=== PATIENT | female | born 2005 | race Caucasian/White ===

== ENCOUNTER 2023-10-22 10:59 | Observation (INO) | payer OTHER, SELFPAY ==
[2023-10-22 11:06] VITALS: BP 112/72; PULSE 127; TEMP 36.7; O2SAT 96
--- NOTE | 2023-10-22 11:07 | CT_ITS ---
WS: [id number] CT HEAD NONCONTRAST HISTORY: ams TECHNIQUE: Contiguous axial imaging performed through the brain in 3.0 mm imaging. Bone and soft tiss ue windows. Sagittal and coronal reformats reviewed. All CT scans at [facility] use at least one of these dose optimization techniques: automated exposure control; mA and/or kV adjustment per pa tient size (includes targeted exams where dose is matched to clinical indication); or iterative recon struction. DLP: 1049.58 mGy.cm COMPARISON: None available. No acute intracranial hemorrhage, midline shift or mass effect. No atrophy or prior infarcts or herniation. Ventricles: Normal size with no hydrocephalus. No intra displacement the cerebellar tonsils. No Chiari malformation. Paranasal sinuses: As visualized are clear. Mastoid air cells: Well pneumatized. Calvarium and scalp: Skull is intact with no soft tissue edema or swelling. CT/CT head wo con* [id number] IMPRESSION: Negative head CT.
--- NOTE | 2023-10-22 11:08 | ECG_ITS ---
[facility] Test Date: 2023-10-22 Pat Name: Luna Serrano Department: Room: Gender: Female Senior Statistical Programmer: : 2005 Requested By: Kaila Gomez Order Number: [id number] Cliff MD: Power Hook M.D. Measurements Intervals [place] Rate: 113 P: 78 MI: 162 QRS: 96 QRSD: 92 T: 61 QT: 332 QTc: 456 Interpretive Statements SINUS TACHYCARDIA POSSIBLE LEFT ATRIAL ENLARGEMENT [-0.1mV P-WAVE IN V1/V2] BORDERLINE RIGHT AXIS DEVIATION [QRS AXIS > 90] INCOMPLETE RIGHT BUNDLE BRANCH BLOCK [90+ ms QRS DURATION, TERMINAL R IN V1/V2, 40+ ms S IN I/aVL/V4/V5/V6] ABNORMAL RHYTHM ECG No previous ECG available for comparison Electronically Signed On 10-22-2023 14:57:13 CDT by Power Hook M.D. [id number]
--- NOTE | 2023-10-22 11:11 | ED_ITS ---
HPI - General Adult 2 General: Chief complaint: Altered Mental Status Stated complaint: Syncope Time Seen by Provider: 10/22/23 11:01 Source: EMS Mode of arrival: EMS Limitations: altered mental status History of Present Illness: 18-year-old female who was at work and h ad a syncopal event that was witnessed patient here is minimally responsive only able to tell me her name but is not moving any extremities or answering any questions I tell her to move her arms and legs and she will not lift them. Per EMS she was tachycardic they gave her some fluids she had a normal blood sugar heart rate is now 117 patient denies any pain but again is minimally responsive here Physical Exam 2 Const: COMMON NORMALS: alert EXAM LIMITATIONS: altered mental status O RIENTATION/CONSCIOUSNESS: Yes oriented to person HENMT: COMMON NORMALS: normocephalic and atraumatic HEAD & SCALP: n ormocephalic and atraumatic Eye: COMMON NORMALS: Equal, round and reactive pupils present and EOMs intact bilaterally PUPIL: Yes Equal, round and reactive pupils present Neck/C-Spine: COMMON NORMALS: full ROM and supple Chest: COMMONS NORMALS: normal inspection of the chest Resp: COMMON NORMALS: normal respiratory effort, No retractions, No use of accessory muscles and clear to auscultation bilaterally AUSCULTATION: clear to auscultation bilaterally Cardio: COMMON NORMALS: regular rhythm and No murmurs present (Cardio) R ATE: tachycardic RHYTHM: regular rhythm GI: COMMON NORMALS: Normal to inspection, nondistended, normoactive bowel sounds present, Soft to palpation, non-tender and no masses PALPATION: Yes Soft to palpation Extremity: COMMON NORMALS: normal to inspection and full ROM Neuro: SENSORIUM/ORIENTATION: Yes alert and Yes oriented to person OTHER: Patient here will only tell me her name she will not move any of her extremities tried to lift them and she will hold them Psych: COMMON NORMALS: cooperative Skin: COMMON NORMALS: no rashes or lesions noted and no wounds GENERAL SKIN EXAM: no rashes or lesions noted Course 2 Reevaluation(s): Reevaluation #1: Patient presents with altered mental status no known history of seizures she had no focal deficits here but she will not move any extremities or hands for any questions patient been here for 2 hours now she continues to be in a catatonic state her imaging including a CTA head is normal. She is not patient is not anemic her electrolytes are normal has a mildly elevated lactate at 3.3 no known history of seizures could be a possible seizure spoken to neurology Dr. Miller at this point and is consulted and is going to come see the patient this time. Time: 12:43 Vital Signs: Vital signs: Vital Signs Temperature 98.2 F 10/22/23 13:07 Pulse Rate 111 H 10/22/23 14:20 Respiratory Rate 16 10/22/23 13:07 Blood Pressure 102/69 10/22/23 14:20 Pulse Oximetry 100 10/22/23 13:07 Oxygen Delivery Me thod Room Air 10/22/23 13:07 MDM - General Adult Medical Decision Making Patient presented after syncopal event she was altered here after roughly 2 and half hours started become more awake she did complain of headache and had a history of migraines did give her Toradol and Zofran her headaches now resolved she is feeling improved she is able to ambulate now did get orthostatics and with standing she still getting tachycardic into the 140s likely has some dehydration I spoke to hospitalist will admit for observation at this time. Medical Records I reviewed the patient's medical records. Lab Data I reviewed the patient's lab results. 10/22/23 10:45 10/22/23 10:[address] 10/22/23 11:07 IMPRESSION: Negative head CT. Chest X-Ray 10/22/23 11:25 IMPRESSION: Unremarkable portable chest. Head/Neck CTA 10/22/23 11:56 IMPRESSION: 1. Normal carotid arteries. 2. Unremarkable [place]. Laboratory Results WBC 10.60 10^3/uL (4.5-13.0) 10/22/23 10:45 RBC 4.59 10^6/uL (3.85-5.65) 10/22/23 10:45 Hgb 13.50 g/dL (12.4-14.8) 10/22/23 10:45 Hct 41.4 % (36-47) 10/22/23 10:45 MCV 90.2 fl (85-98) 10/22/23 10:45 MCH 29.4 pg (27-33) 10/22/23 10:45 MCHC 32.6 g/dL (30-55) 10/22/23 10:45 RDW 12.5 % (12.1-15.1) 10/22/23 10:45 Plt Count 384 10^3/cmm (157-399) 10/22/23 10:45 MPV 9.3 fL (7.4-10.4) 10/22/23 10:45 Neut % (Auto) 27.7 % 10/22/23 10:45 Lymph % (Auto) 58.9 % 10/22/23 10:45 Josephine % (Auto) 8.9 % 10/22/23 10:45 Eos % (Auto) 3.0 % 10/22/23 10:45 Baso % (Auto) 1.3 % 10/22/23 10:45 Neut # (Auto) 2.94 10^3/uL (1.8-8.0) 10/22/23 10:45 Lymph # (Auto) 6.2 10^3/uL (1.5-6.5) 10/22/23 10:45 Josephine # (Auto) 0.9 10^3/uL (0.2-0.9) 10/22/23 10:45 Eos # (Auto) 0.3 10^3/uL (0.0-0.8) 10/22/23 10:45 Baso # (Auto) 0.1 10^3/uL (0.0-0.1) 10/22/23 10:45 Nucleated RBC % (auto) 0 % 10/22/23 10:45 Nucleated RBCs # 0.0 /100WBC 10/22/23 10:45 D-Dimer 0.42 ug/mLFEU (0-0.59) 10/22/23 11:20 Specimen Type Arterial 10/22/23 13:23 Sample Site Brachial, right 10/22/23 13:23 ABG pH 7.41 (7.35-7.45) 10/22/23 13:23 ABG pCO2 31.4 mmHg (35-45) L 10/22/23 13:23 ABG pO2 120.0 mmHg (80.0-100.0) H 10/22/23 13:23 ABG PO2/FiO2 Ratio 571 10/22/23 13:23 ABG HCO3 19.8 mmol/L (22-26) L 10/22/23 13:23 ABG Base Excess -4.0 mmol/L (-2.0-2.0) L 10/22/23 13:23 [place] Test Pos 10/22/23 13:23 Hematocrit 38.4 % (37-47) 10/22/23 13:23 O2 Delivery Device Room air 10/22/23 13:23 FiO2 21.0 % 10/22/23 13:23 Mold Yarn Supervisor ID [place] 10/22/23 13:23 Sodium 140 mmol/L (136-145) 10/22/23 10:45 Potassium 3.8 mmol/L (3.5-5.1) 10/22/23 10:45 Chloride 107 mmol/L (98-107) 10/22/23 10:45 Carbon Dioxide 20 mmol/L (22-29) L 10/22/23 10:45 Anion Gap 16.8 (5-19) 10/22/23 10:45 BUN 12 mg/dL (6-20) 10/22/23 10:45 Creatinine 0.5 mg/dL (0.5-0.9) 10/22/23 10:45 GFR Calculation 157.3 mL/min (90-130) H 10/22/23 10:45 Glucose 175 mg/dL (65-115) H 10/22/23 10:45 Calculated Osmolality 294 mOsm/kg (285-295) 10/22/23 10:45 Lactic Acid 3.3 mmol/L (0.5-2.2) H 10/22/23 10:45 Lactic Acid (Sepsis) 1.3 mmol/L (0.5-2.2) 10/22/23 14:11 Calcium 8.7 mg/dL (8.5-10.5) 10/22/23 10:45 Magnesium 1.8 mg/dL (1.7-2.3) 10/22/23 10:45 Total Bilirubin 0.7 mg/dL (0.15-1.2) 10/22/23 10:45 AST 43 U/L (0-32) H 10/22/23 10:45 ALT 72 U/L (0-33) H 10/22/23 10:45 Alkaline Phosphatase 56 U/L (35-105) 10/22/23 10:45 Troponin T Baseline < 6 ng/L (0-10) 10/22/23 10:45 Troponin T 120 Minute 6.00 ng/L (0-10) 10/22/23 12:54 Delta Troponin T 0.35045 ABS# (0-10) 10/22/23 12:54 Total Protein 6.7 g/dL (6.6-8.7) 10/22/23 10:45 Albumin 4.0 g/dL (3.5-5.2) 10/22/23 10:45 Globulin 2.7 g/dL (1.3-4.6) 10/22/23 10:45 Lipase 36 U/L (13-60) 10/22/23 10:45 TSH 1.21 uIU/mL (0.27-4.20) 10/22/23 10:45 HCG, Qual Negative (Negative) 10/22/23 10:45 Urine Color Yellow (Yellow) 10/22/23 12:38 Urine Appearance Clear (CLEAR) 10/22/23 12:38 Urine pH 6.5 (5-7) 10/22/23 12:38 Ur Specific [place] 1.020 (1.005-1.030) 10/22/23 12:38 Urine Protein Negative (Negative) 10/22/23 12:38 Urine Glucose (UA) Negative (Normal) 10/22/23 12:38 Urine Ketones Trace (Negative) 10/22/23 12:38 Urine Blood Negative (Negative) 10/22/23 12:38 Urine Nitrate Negative (Negative) 10/22/23 12:38 Urine Bilirubin Negative (Negative) 10/22/23 12:38 Urine Urobilinogen 0.2 mg/dL (Negative) 10/22/23 12:38 Ur Leukocyte Esterase Negative (Negative) 10/22/23 12:38 Amorphous Sediment Not Reportable 10/22/23 12:38 Salicylates < 0.3 mg/dL (3-10) L 10/22/23 10:45 Urine Opiates Screen Negative ng/mL (Negative) 10/22/23 12:38 Acetaminophen < 5.0 ug/mL (10-30) L 10/22/23 10:45 Ur Barbiturates Screen Negative ng/mL (Negative) 10/22/23 12:38 Ur Phencyclidine Scrn Negative ng/mL (Negative) 10/22/23 12:38 Ur Amphetamines Screen Negative ng/mL (Negative) 10/22/23 12:38 U Benzodiazepines Scrn Negative ng/mL (Negative) 10/22/23 12:38 Urine Cocaine Screen Negative ng/mL (Negative) 10/22/23 12:38 U Marijuana (THC) Screen Positive ng/mL (Negative) H 10/22/23 12:38 Ethyl Alcohol 23 mg/dL (0-10) H 10/22/23 10:45 All radiology interpretation(s) finalized by discharge EKG Data EKG 1: I personally reviewed and interpreted this EKG as follows: EKG interpretation date: 10/22/23 EKG interpretation time: 11:23 Interpretation: sinus tach hr [address] or t wave abnormalities qrs 92 qtc 399 Computer generated interpretation: Head CT 10/22/23 11:07 IMPRESSION: Negative head CT. Chest X-Ray 10/22/23 11:25 IMPRESSION: Unremarkable portable chest. Head/Neck CTA 10/22/23 11:56 IMPRESSION: 1. Normal carotid arteries. 2. Unremarkable [place]. Discharge Plan Discharge Patient Disposition: Placed in Observation Clinical Impression: Syncope, Migraine, Dehydration, Altered mental status, Tachycardia Condition: Stable Prescriptions: No Action Ada 24 Fe 1 mg-20 mcg (24)/75 mg (4) tablet 1 tab PO DAILY Patient Instructions: Altered Mental Status (ED) Coding Level of Care Code ED Blow Torch Operator for Kj Rudolph
[2023-10-22] MEDS: sodium chloride 0.9% 1,000 ML 999 ML IV ×2 (11:21→12:59)
--- NOTE | 2023-10-22 11:25 | XR_ITS ---
WS: [id number] PORTABLE CHEST HISTORY: syncope COMPARISON: None available. Lungs are clear and well expanded. No pleural effusion or pneumothorax. Cardiac size: Normal. Mediastinum/Aorta: Normal mediastinum. No osseous abnormality seen. XR/XR chest 1V portable [id number] IMPRESSION: Unremarkable portable chest.
[2023-10-22 11:26] LABS: Basophils # 0.1 10^3/uL (0.0-0.1); Basophils % 1.3 %; Eosinophils # 0.3 10^3/uL (0.0-0.8); Hematocrit 41.4 % (36-47); Lymphocytes # 6.2 10^3/uL (1.5-6.5); Lymphocytes % 58.9 %; Mean Corpuscular HGB Conc 32.6 g/dL (30-55); Mean Corpuscular Hemoglobin 29.4 pg (27-33); Mean Corpuscular Volume 90.2 fl (85-98); Mean Platelet Volume 9.3 fL (7.4-10.4); Monocytes # 0.9 10^3/uL (0.2-0.9); Monocytes % 8.9 %; Neutrophils # 2.94 10^3/uL (1.8-8.0); Neutrophils % 27.7 %; Nucleated Red Blood Cells % 0 %; Platelet Count 384 10^3/cmm (157-399); Red Blood Count 4.59 10^6/uL (3.85-5.65); Red Cell Distribution Width 12.5 % (12.1-15.1)
[2023-10-22 11:43] LABS: HCG, Serum Qual Negative (Negative)
[2023-10-22 11:46] LABS: D Dimer 0.42 ug/mLFEU (0-0.59)
--- NOTE | 2023-10-22 11:46 | PC.PHAR ---
PT UNRESPONSIVE. PHONED PHARMACY FOR VERIFICATION OF 1 MEDICATION-LAST FILL DATE AND DAYS SUPPLY ENTERED.
[2023-10-22 11:47] LABS: Troponin(5th) Baseline < 6 ng/L (0-10)
[2023-10-22 11:48] LABS: Alanine Aminotransferase 72 U/L (0-33); Alcohol Level 23 mg/dL (0-10); Alkaline Phosphatase 56 U/L (35-105); Anion Gap 16.8 (5-19); Aspartate Amino Transferase 43 U/L (0-32); Blood Urea Nitrogen 12 mg/dL (6-20); Calcium 8.7 mg/dL (8.5-10.5); Carbon Dioxide 20 mmol/L (22-29); Chloride 107 mmol/L (98-107); Globulin 2.7 g/dL (1.3-4.6); Glomerular Filtration Rate 157.3 mL/min (90-130); Glucose 175 mg/dL (65-115); Lipase 36 U/L (13-60); Magnesium 1.8 mg/dL (1.7-2.3); Osmolality Calculated 294 mOsm/kg (285-295); Potassium 3.8 mmol/L (3.5-5.1); Sodium 140 mmol/L (136-145); Total Bilirubin 0.7 mg/dL (0.15-1.2); Total Protein 6.7 g/dL (6.6-8.7)
--- NOTE | 2023-10-22 11:56 | CT_ITS ---
WS: [id number] CT ANGIOGRAM CEREBRAL AND CAROTID ARTERIES HISTORY: ams TECHNIQUE: CT angiogram is performed of the carotid and cerebral arteries. During arterial injection imaging is obtained from the skull vertex to the aortic arch in 1.25 mm imaging. Coronal and sagittal reformats are submitted. Additional multi planar reformats of the carotid and cerebral arteries are submitted, MIP imaging also reviewed. NASCET criteria utilized. All CT scans at [facility] us e at least one of these dose optimization techniques: automated exposure control; mA and/or kV adjust ment per patient size (includes targeted exams where dose is matched to clinical indication); or iter ative reconstruction. CONTRAST: Omnipaque 350; 100 mL IV. DLP: 390.12 mGy.cm COMPARISON: None available. Carotid Angiogram: Right carotid: Common carotid artery: Arises normally from the innominate artery. No significant plaque or stenosis. Internal carotid artery: No plaque or stenosis. External carotid artery: Patent. Left carotid: Common carotid artery: Arises normally from the aorta. No significant plaque or stenosis. Internal carotid artery: No plaque or stenosis. External carotid artery: Patent. Right vertebral artery: Unremarkable. Left vertebral artery: Unremarkable. Arises normally from the subclavian artery. Subclavian arteries: No stenosis or significant abnormality. Upper thorax: Normal. Thyroid gland: Normal. Osseous structures: Unremarkable. CEREBRAL ANGIOGRAM: Intracranial vertebral arteries: Normal with no significant atherosclerosis. Basilar artery: No significant stenosis or occlusion. No aneurysm. Intracranial Internal carotid arteries: Demonstrates no significant stenosis or plaque. Middle cerebral arteries: Normal. Anterior cerebral arteries and ACOM: Normal. Posterior cerebral arteries and PCOM's: Normal. Dural venous sinuses are normally enhancing. Small arachnoid granulations are noted in the far latera l transverse sinuses. The RIGHT transverse sinus and sigmoid sinus are greater in size than the LEFT. Mastoid air cells: Normal. Paranasal sinuses: Normal. Calvarium: Normal. CT/CT angio headneck* [id number] IMPRESSION: 1. Normal carotid arteries. 2. Unremarkable [place].
[2023-10-22 11:58] LABS: Slide Review Slide Review Perform
[2023-10-22] MEDS: iohexol 350 mg/mL 500 mL Btl (per mL) IV (12:09)
[2023-10-22 12:10] LABS: Lactic Sepsis W/Reflex 3.3 mmol/L (0.5-2.2)
[2023-10-22 12:27] LABS: Thyroid Stimulating Hormone 1.21 uIU/mL (0.27-4.20)
[2023-10-22 12:48] LABS: Charge for UA Resulting for Rev
[2023-10-22 12:51] LABS: Bilirubin Urine Negative (Negative); Blood Urine Negative (Negative); Glucose Urine UA Negative (Normal); Ketones Urine Trace (Negative); Leukocyte Esterase Urine Negative (Negative); Nitrate Urine Negative (Negative); Protein Urine Negative (Negative); Urine Appearance Clear (CLEAR); Urine Color Yellow (Yellow); Urobilinogen Urine 0.2 mg/dL (Negative); pH Urine 6.5 (5-7)
[2023-10-22 12:58] LABS: Amphetamines Screen Urine Negative (Negative); Barbiturates Screen Urine Negative (Negative); Benzodiazepines Screen Urine Negative (Negative); Cocaine Screen Urine Negative (Negative); Opiate Screen Urine Negative (Negative); PCP Screen Urine Negative (Negative); THC Screen Urine Positive (Negative)
[2023-10-22 13:07] VITALS: BP 116/79; PULSE 145; RESP 16; TEMP 36.8; O2SAT 100
--- NOTE | 2023-10-22 13:08 | ECG_ITS ---
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 Measurements Intervals [place] Rate: 132 P: 78 IN: 151 QRS: 97 QRSD: 84 T: 44 QT: 286 QTc: 424 Interpretive Statements SINUS TACHYCARDIA BORDERLINE RIGHT AXIS DEVIATION [QRS AXIS > 90] Compared to ECG 10/22/2023 11:23:02 Incomplete right bundle-branch block no longer present Electronically Signed On 10-22-2023 14:57:45 CDT by Power Hook M.D. [id number]
[2023-10-22] MEDS: sodium chloride 0.9% 500 ML 999 ML IV (13:30)
[2023-10-22 13:31] LABS: Troponin 5 2HR Delta 0.00001 ABS# (0-10)
[2023-10-22] MEDS: ketorolac 30 mg/mL INJ IVP (13:31)
[2023-10-22] MEDS: ondansetron 2 mg/ML SDV 2 mL 4 MG IVP (13:31)
--- NOTE | 2023-10-22 13:33 | PM.CONSULT ---
Providers/Reason For Consult Consulting Physician/Specialty*: Perry Mccoy MD neurology and epilepsy Reason for Consult*: Decreased level consciousness/syncope History of Present Illness History of Present Illness Luna Serrano is a 18 year old female with no known past medical history. Patient is in [employer] school. 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 Patient was reported to go to the break room at the facility where she worked and was found down in the break room with nausea and vomiting. In the emergency department patient was started on IV fluids lab for CBC, comprehensive metabolic panel, TSH, magnesium and lactate were obtained. Lactate was elevated at 3.3. Other labs was reported to be unrevealing, including serum quantitative test. CT angiogram of the head and neck and noncontrast head CT reported to be negative. On neurological assessment the patient is currently alert she will nod her head yes and no to questions appropriately. Patient follows all commands. Examination nonfocal. During my assessment the patient stated she needed to use the bathroom and she was able to use a bedside alexander with the nurses anatomic pathology assistant without any issues. 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 He also informed me that the patient has complained of migraine type headaches associated with nausea and photophobia for at least a year. Clinically the patient's examination suggestive of dehydration. I recommended patient continue to get IV fluids and I spoke with the ER physician caring for the patient to try Toradol and IV Phenergan to see if this will help the patient's headache. Drug allergies: None Medications: Norethindrone estradiol/iron 1 p.o. daily Habits: Urine drug screen positive for marijuana and alcohol on the the patient's sister and boyfriend stated patient does not use drugs to their knowledge Last menstrual period: Unable to obtain but exam test/hCG negative Occupation: [employer] student first year Review of Systems General: Reports: ROS unobtainable due to medical condition Medications/Allergies Home Medications Medication Instructions Recorded Confirmed Last Taken Type norethindrone 1 mg-ethinyl 1 tab PO DAILY 10/22/23 10/22/23 Unknown History estradiol 20 mcg (24)-iron 75 mg (4) tablet ([place] 24 Fe) Current Medications Generic Name Dose Route Start Last Admin Trade Name Star PRN Reason Stop Dose Admin Sodium Chloride 500 mls @ 999 mls/hr 10/22/23 13:23 10/22/23 13:30 Sodium Chloride 0.9% IV 10/22/23 13:53 999 mls/hr .Q31M ONE Administration Vitals/I&O/Wt Last Vital Signs Temp 98.2 F 10/22/23 13:07 Pulse 145 H 10/22/23 13:07 Resp 16 10/22/23 13:07 BP 116/79 10/22/23 13:07 Pulse Ox 100 10/22/23 13:07 O2 Del Method Room Air 10/22/23 13:07 10/21/23 10/22/23 10/22/23 22:59 06:59 14:59 Intake Total 1000 / 1000 Balance 1000 / 1000 Physical Exam Narrative: Blood pressure 116/70 heart rate 145 respiration 16 temperature 98.2 O2 saturation 100% on room air The patient is alert she follows commands she is oriented to person she will speak sparsely. Her speech is soft. Head atraumatic. Neck supple. Cranial nerves II through XII intact. There is no obvious signs of facial weakness. Pupils 5 to 6 mm with the room darkening with the lights secondary to patient reporting headache and photophobia. Motor testing while the patient was lying on the gurney 5/5 bilaterally. There was no drift. Patient was able to hold arms and legs off the bed against gravity with no drift. Deep tendon reflexes 2+ bilaterally. Plantar responses flexor bilaterally there was no clonus. Sensory examination intact to touch. Throat clear. Lungs clear. Heart regular rhythm with increased rate. Extremities were negative for clubbing cyanosis or edema. Data 10/22/23 10:45 10/22/23 10:45 A&P Assessment and plan (1) Syncope: Impression: 1. Syncope at [employer] 08/24/2023 2. Dehydration 3. History of migraine headaches 4. Sinus tachycardia Plan: 1. Agree with IV fluids for hydration 2. Agree with trial of Phenergan and Toradol for headache as needed 3. Address tachycardia 4. Schedule patient for follow-up in the [facility] neurology clinic in 1 to 2 weeks after discharge 5. Recommend patient be evaluated by cardiology on an outpatient basis to assess for cardiac arrhythmias 6. Will schedule an outpatient sleep deprived EEG recording on follow-up 7. Syncope precautions which includes but not limited to no driving or participating in activity would endanger herself or others in the event the patient experienced a syncopal episode while participating in those activities per state law until further notice (2) Migraine: (3) Dehydration: Consult Attestations Medical Necessity Statement: The patient was evaluated by neurology for syncope and decreased level conscious Coding Level of Care Code 56355 Diagnoses Syncope R55 Migraine G43.909 Dehydration E86.0
[2023-10-22 13:35] LABS: Blood Gas Allen Test Pos; Blood Gas Sample Type Arterial
[2023-10-22 13:37] LABS: ABG PCO2 31.4 mmHg (35-45); ABG PH Result 7.41 (7.35-7.45); Arterial Blood Gas Hematocrit 38.4 % (37-47); Blood Gas Operator Identificat MONRO; Blood Gas Sample Site Brachial, right; HCO3 ABG 19.8 mmol/L (22-26); Oxygen Device ROOM AIR; PO2 FiO2 Ratio Arterial Blood 571
[2023-10-22 13:45] LABS: Reflex Lactate Order REFLEX LACTIC ORDERD
[2023-10-22 13:52] LABS: Acetaminophen < 5.0 ug/mL (10-30); Salicylate < 0.3 mg/dL (3-10)
[2023-10-22 14:20] VITALS: BP 102/69; BP 113/81; BP 115/74; PULSE 111; PULSE 115; PULSE 136
[2023-10-22 14:43] LABS: Lactic Acid level (Lactate) 1.3 mmol/L (0.5-2.2)
[2023-10-22] MEDS: doxycycline 100 mg Tablet PO (15:14)
[2023-10-22] MEDS: sodium chloride 0.9% 1,000 ML 150 ML IV (15:15)
--- NOTE | 2023-10-22 15:43 | P.HP_ITS ---
Providers/Chief Complaint 2 Chief Complaint: Syncope History of Present Illness Luna Serrano is a 18 year old female who does not have any significant past medical history presented to the hospital with chief complaint of syncope. 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 She does not remember anything after that until she woke up in the ER, when EMS brought her in she was bit rigid and tense as per the family they were concerned about seizure related activity, her CBC and BMP unremarkable, lactic acid was high, I have requested prolactin level, 3 weeks ago she had a tick bite, no fever, patient has been experiencing headache on daily basis, her BMI is extremely low, does not smoke, her alcohol level is 23 however she is not endorsing drinking alcohol, endorses to electronic vapes. In the ER patient was tachycardic, she was given doxycycline and IV fluids along Toradol which improved her tachycardia, patient is awake and alert and able to communicate, I do not see any focal deficit, patient is denying any galactorrhea, vision changes but endorses that she gets lightheaded on changing her position from sitting to standing. No chest pain, shortness of breath recent diarrhea or vomiting. She never had any episode of seizure or syncope in the past. Drug screen positive for alcohol and marijuana. Review of Systems 2 Const: Denies: fever(s) Eyes: Denies: change in vision ENMT: Denies: throat pain Card: Denies: chest pain Resp: Denies: dyspnea GI: Denies: abdominal pain : Denies: flank pain Medications/Allergies Home Medications Medication Instructions Recorded Confirmed Last Taken Type norethindrone 1 mg-ethinyl 1 tab PO DAILY 10/22/23 10/22/23 Unknown History estradiol 20 mcg (24)-iron 75 mg (4) tablet ([place] 24 Fe) Vitals/I&O/Wt Last Vital Signs Temp 98.2 F 10/22/23 13:07 Pulse 111 H 10/22/23 14:20 Resp 16 10/22/23 13:07 BP 102/69 10/22/23 14:20 Pulse Ox 100 10/22/23 13:07 O2 Del Method Room Air 10/22/23 13:07 08/09/0810/22/23 10/22/23 06:59 14:59 22:59 Intake Total 1000 / 1000 Balance 1000 / 1000 Physical Exam 2 Narrative: young female Awake and alert Nonfocal neuroexam No sign of seizure Pleasant cooperative S1, S2 sinus rhythm heart rate in 90s Blood pressure 97/60 mmHg Currently on room air Abdomen soft Muscle mass loss Sarcopenia No significant skin rash on lower extremity Data 10/22/23 10:45 10/22/23 10:45 A&P Assessment and plan (1) Tachycardia: (2) Dehydration: (3) Migraine: (4) Altered mental status: (5) Syncope: (6) Polysubstance abuse: Plan Syncope Rule out seizure Check prolactin High lactic acid related to dehydration IV fluids to be continued Admit as observation Check B12, TSH, D-dimer Drug screen positive for alcohol and marijuana However patient is not endorsing, Patient had a tick related rash 3 weeks ago I will keep her on ceftriaxone for now Continue IV fluids which is improving her tachycardia and blood pressure CT head CTA head and neck unremarkable If prolactin is above 100 then I will go for head MRI to rule out prolactinoma I am anticipating patient will be able to go home by tomorrow Regular diet Patient has been counseled on maintaining healthy BMI She is not endorsing any irregular menstrual cycle/bleeding Family assisted in taking information, patient is still groggy Attestations 2 Medical Necessity Statement*: Anticipating discharge within 48 hours Diagnoses Tachycardia R00.0 Dehydration E86.0 Migraine G43.909 Altered mental status R41.82 Syncope R55 Polysubstance abuse F19.10
[2023-10-22 16:00] VITALS: BP 97/60; PULSE 92; RESP 18; TEMP 36.7; O2SAT 100
[2023-10-22 16:49] VITALS: BMI 16.9
[2023-10-22 16:58] LABS: Prolactin 63.93 ng/mL (4.8-23.3)
[2023-10-22 17:10] VITALS: PULSE 85; RESP 16; O2SAT 98
[2023-10-22 17:47] LABS: Vitamin B12 824 pg/mL (232-1245)
[2023-10-22] MEDS: sodium chloride 0.9% 1,000 ML 75 ML IV (18:01)
[2023-10-22] MEDS: cefTRIAXone 1,000 mg SDV 1000 MG IVP (18:01)
--- NOTE | 2023-10-22 18:18 | PC.NURSE ---
Blood draw completed from right lower arm. Full rainbow per request of lab. Tolerated well.
[2023-10-22 18:52] LABS: Troponin 5 6HR 7.12 ng/L (0-10); Troponin 5 6HR Delta 1.12001 ng/L (0-12)
[2023-10-23] VITALS: BP 92/64; PULSE 69; RESP 16; TEMP 36.4; O2SAT 98
[2023-10-23 04:00] VITALS: BP 102/61; PULSE 75; RESP 17; TEMP 36.4; O2SAT 97
[2023-10-23] MEDS: sodium chloride 0.9% 1,000 ML 75 ML IV (04:20)
[2023-10-23 06:24] LABS: Basophils # 0.1 10^3/uL (0.0-0.1); Basophils % 0.9 %; Eosinophils # 0.3 10^3/uL (0.0-0.8); Eosinophils % 3.8 %; Hematocrit 36.4 % (36-47); Lymphocytes # 3.4 10^3/uL (1.5-6.5); Lymphocytes % 44.8 %; Mean Corpuscular HGB Conc 31.9 g/dL (30-55); Mean Corpuscular Hemoglobin 29.4 pg (27-33); Mean Corpuscular Volume 92.4 fl (85-98); Mean Platelet Volume 9.3 fL (7.4-10.4); Monocytes # 0.7 10^3/uL (0.2-0.9); Monocytes % 9.1 %; Neutrophils # 3.16 10^3/uL (1.8-8.0); Neutrophils % 41.3 %; Nucleated Red Blood Cells % 0 %; Platelet Count 253 10^3/cmm (157-399); Red Blood Count 3.94 10^6/uL (3.85-5.65); Red Cell Distribution Width 12.7 % (12.1-15.1); White Blood Count 7.66 10^3/uL (4.5-13.0)
[2023-10-23 06:42] LABS: Alanine Aminotransferase 83 U/L (0-33); Albumin Level 3.5 g/dL (3.5-5.2); Alkaline Phosphatase 55 U/L (35-105); Anion Gap 14.7 (5-19); Aspartate Amino Transferase 60 U/L (0-32); Blood Urea Nitrogen 6 mg/dL (6-20); Calcium 8.2 mg/dL (8.5-10.5); Carbon Dioxide 19 mmol/L (22-29); Chloride 113 mmol/L (98-107); Creatine Phosphokinase 110 U/L (26-192); Creatinine Clr Calc Pharmacy 199.2683; Globulin 2.1 g/dL (1.3-4.6); Glomerular Filtration Rate 203.5 mL/min (90-130); Glucose 86 mg/dL (65-115); Magnesium 1.8 mg/dL (1.7-2.3); Osmolality Calculated 293 mOsm/kg (285-295); Phosphorus 3.4 mg/dL (2.5-4.5); Potassium 3.7 mmol/L (3.5-5.1); Sodium 143 mmol/L (136-145); Total Bilirubin 0.3 mg/dL (0.15-1.2); Total Protein 5.6 g/dL (6.6-8.7)
[2023-10-23 07:35] VITALS: BP 98/53; PULSE 65; RESP 16; TEMP 36.3; O2SAT 95
[2023-10-23 08:20] VITALS: PULSE 88; RESP 16; O2SAT 95
[2023-10-23] MEDS: sennosides-docusate Tablet 1 TAB PO (08:33)
--- NOTE | 2023-10-23 08:42 | MR_ITS ---
WS: [id number] MRI HEAD WITHOUT CONTRAST TECHNIQUE: Sagittal T1, T2 axial, T2 axial FLAIR, axial and coronal T1 images, axial susceptibility w eighted imaging, axial diffusion weighted images, and coronal T2 images were obtained. CLINICAL INFORMATION: seizure? COMPARISON: CT 10/22/2023 FINDINGS: No evidence of restricted diffusion to suggest acute ischemia. Ventricular system and basal cisterns are patent. Anderson-white differentiation. No suspicious intracranial signal normalities. Single punctat e focus of T2 hyperintensity in the RIGHT posterior frontal lobe of doubtful clinical significance. N ormal posterior fossa. Normal vascular flow voids at the skull base. No extra-axial fluid collections . No evidence of mass or mass effect. Paranasal sinuses and mastoid air cells are well aerated. Amy l posterior nasopharynx. No hemosiderin on the susceptibly weighted images. Normal optic chiasm and pituitary infundibulum. Te mporal lobes and hippocampal formations are normal in appearance. No signal abnormalities in the juan al temporal lobes. No evidence of mesial temporal sclerosis. MR/MR head wo con* [id number] IMPRESSION: 1. No evidence of restricted diffusion to suggest acute ischemia. 2. Mesial temporal lobes are normal in appearance. No signal abnormalities in the mesial temporal lobes. 3. No hemosiderin on the susceptibly weighted images. 4. Single tiny punctate focus of T2 hyperintensity in the RIGHT posterior fron justice lobe of doubtful clinical significance
[2023-10-23] MEDS: azithromycin 250 mg Tablet PO (09:30)
[2023-10-23 09:33] LABS: HIV 1 & 2 Antibody Non-Reactive (Non-Reactiv); HIV 1 & 2 Antigen Non-Reactive (Non-Reactiv)
[2023-10-23 09:40] LABS: Hepatitis A Antibody IgM Non-Reactive (Nonreactive); Hepatitis B Core AB, Total Non-Reactive (Nonreactive); Hepatitis B Surface AB < 3.5 (11.5-1000); Hepatitis B Surface Antigen Non-Reactive (Nonreactive); Hepatitis C Virus Antibody Non-Reactive (Nonreactive)
--- NOTE | 2023-10-23 10:40 | PM.DCS ---
Discharge Providers Date of Admission: 10/22/23 15:51 Date of Discharge: October 23, 2023 Attending Provider at Admission: Nigel Kuhn MD Attending Provider at Discharge: Nigel Kuhn MD Diagnoses at Discharge Discharge Diagnosis (1) Tachycardia: Status: Acute (2) Dehydration: Status: Acute (3) Migraine: Status: Acute (4) Altered mental status: Status: Acute (5) Syncope: Status: Acute (6) Polysubstance abuse: Status: Acute Reason for Visit Reason for Visit: Syncope Hospital Course Hospital Course This is a note which was written by customer service sales consultant Dr. Miller neurologist Luna Serrano is a 18 year old female with no known past medical history. 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 Patient was reported to go to the break room at the facility where she worked and was found down in the break room with nausea and vomiting. In the emergency department patient was started on IV fluids lab for CBC, comprehensive metabolic panel, TSH, magnesium and lactate were obtained. Lactate was elevated at 3.3. Other labs was reported to be unrevealing, including serum quantitative test. CT angiogram of the head and neck and noncontrast head CT reported to be negative. On neurological assessment the patient is currently alert she will nod her head yes and no to questions appropriately. Patient follows all commands. Examination nonfocal. During my assessment the patient stated she needed to use the bathroom and she was able to use a bedside alexander with the nurses circulation assistant without any issues. 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 He also informed me that the patient has complained of migraine type headaches associated with nausea and photophobia for at least a year. Clinically the patient's examination suggestive of dehydration. I recommended patient continue to get IV fluids and I spoke with the ER physician caring for the patient to try Toradol and IV Phenergan to see if this will help the patient's headache. Hospital course Young female who was admitted to the hospital for management evaluation of syncopal event. Patient was hypotensive, clinically dehydrated with signs of anorexia with poor BMI. Patient's drug screen was positive for marijuana and alcohol level of 23, patient did not endorse drinking alcohol or using marijuana, stating that before she got sick during midmorning break her friend asked her to take a hit of her vape, after that she started feeling nauseous and had 1 episode of emesis. She did not feel better afterwards and then got worse and had syncopal event. HIV hepatitis panel negative. Abnormal liver enzymes, considering recent tick bite which was 3 weeks ago she was kept on ceftriaxone during hospitalization tick panel has been requested, her prolactin level was 63, she is denying vision changes, galactorrhea, change in menstrual cycle, I have requested MRI of head before her discharge from the hospital. She will follow-up with Dr. Miller for an EEG. She has been instructed not to drive alone until she gets clearance from Dr. Miller neurologist. Physical Exam Narrative: Awake and alert Able to work with PT GCS 15 Nonfocal neuroexam Hemodynamically stable Nonfocal neuroexam S1, S2 Discharge Data Studies Completed and Pending Completed Studies During Hospitalization Category Date Time Status CT head wo con* [id number] Stat Cat Scan 10/22/23 11:07 Completed CTA head neck [CT angio headneck* [id number]] Stat Cat Scan 10/22/23 11:56 Completed CXRP [XR chest 1V portable [id number]] Stat Exams 10/22/23 11:25 Completed Pending at discharge Category Date Time Status Chlamydia/Gonorrh RNA,TMA URO Routine Lab 10/23/23 08:44 Uncollected Tick Panel Stat Lab 10/22/23 11:20 Received MR head wo con* [id number] Routine MRI 10/23/23 08:42 Taken Radiology Impressions Head CT 10/22/23 11:07 IMPRESSION: Negative head CT. Chest X-Ray 10/22/23 11:25 IMPRESSION: Unremarkable portable chest. Head/Neck CTA 10/22/23 11:56 IMPRESSION: 1. Normal carotid arteries. 2. Unremarkable [place] [facility] [place]. Laboratory Results WBC 7.66 10^3/uL (4.5-13.0) 10/23/23 04:58 RBC 3.94 10^6/uL (3.85-5.65) 10/23/23 04:58 Hgb 11.60 g/dL (12.4-14.8) L 10/23/23 04:58 Hct 36.4 % (36-47) 10/23/23 04:58 MCV 92.4 fl (85-98) 10/23/23 04:58 MCH 29.4 pg (27-33) 10/23/23 04:58 MCHC 31.9 g/dL (30-55) 10/23/23 04:58 RDW 12.7 % (12.1-15.1) 10/23/23 04:58 Plt Count 253 10^3/cmm (157-399) D 10/23/23 04:58 MPV 9.3 fL (7.4-10.4) 10/23/23 04:58 Neut % (Auto) 41.3 % 10/23/23 04:58 Lymph % (Auto) 44.8 % 10/23/23 04:58 [place] % (Auto) 9.1 % 10/23/23 04:58 Eos % (Auto) 3.8 % 10/23/23 04:58 Baso % (Auto) 0.9 % 10/23/23 04:58 Neut # (Auto) 3.16 10^3/uL (1.8-8.0) 10/23/23 04:58 Lymph # (Auto) 3.4 10^3/uL (1.5-6.5) 10/23/23 04:58 [place] # (Auto) 0.7 10^3/uL (0.2-0.9) 10/23/23 04:58 Eos # (Auto) 0.3 10^3/uL (0.0-0.8) 10/23/23 04:58 Baso # (Auto) 0.1 10^3/uL (0.0-0.1) 10/23/23 04:58 Nucleated RBC % (auto) 0 % 10/23/23 04:58 Nucleated RBCs # 0.0 /100WBC 10/23/23 04:58 D-Dimer 0.42 ug/mLFEU (0-0.59) 10/22/23 11:20 Specimen Type Arterial 10/22/23 13:23 Sample Site Brachial, right 10/22/23 13:23 ABG pH 7.41 (7.35-7.45) 10/22/23 13:23 ABG pCO2 31.4 mmHg (35-45) L 10/22/23 13:23 ABG pO2 120.0 mmHg (80.0-100.0) H 10/22/23 13:23 ABG PO2/FiO2 Ratio 571 10/22/23 13:23 ABG HCO3 19.8 mmol/L (22-26) L 10/22/23 13:23 ABG Base Excess -4.0 mmol/L (-2.0-2.0) L 10/22/23 13:23 [place] Test Pos 10/22/23 13:23 Hematocrit 38.4 % (37-47) 10/22/23 13:23 O2 Delivery Device Room air 10/22/23 13:23 FiO2 21.0 % 10/22/23 13:23 Doughnut Icer ID Ste[place] 10/22/23 13:23 Sodium 143 mmol/L (136-145) 10/23/23 04:58 Potassium 3.7 mmol/L (3.5-5.1) 10/23/23 04:58 Chloride 113 mmol/L (98-107) H 10/23/23 04:58 Carbon Dioxide 19 mmol/L (22-29) L 10/23/23 04:58 Anion Gap 14.7 (5-19) 10/23/23 04:58 BUN 6 mg/dL (6-20) 10/23/23 04:58 Creatinine 0.4 mg/dL (0.5-0.9) L 10/23/23 04:58 GFR Calculation 203.5 mL/min (90-130) H 10/23/23 04:58 Glucose 86 mg/dL (65-115) 10/23/23 04:58 Calculated Osmolality 293 mOsm/kg (285-295) 10/23/23 04:58 Lactic Acid 3.3 mmol/L (0.5-2.2) H 10/22/23 10:45 Lactic Acid (Sepsis) 1.3 mmol/L (0.5-2.2) 10/22/23 14:11 Calcium 8.2 mg/dL (8.5-10.5) L 10/23/23 04:58 Phosphorus 3.4 mg/dL (2.5-4.5) 10/23/23 04:58 Magnesium 1.8 mg/dL (1.7-2.3) 10/23/23 04:58 Total Bilirubin 0.3 mg/dL (0.15-1.2) 10/23/23 04:58 AST 60 U/L (0-32) H 10/23/23 04:58 ALT 83 U/L (0-33) H 10/23/23 04:58 Alkaline Phosphatase 55 U/L (35-105) 10/23/23 04:58 Creatine Kinase 110 U/L (26-192) 10/23/23 04:58 Troponin T Baseline < 6 ng/L (0-10) 10/22/23 10:45 Troponin T 120 Minute 6.00 ng/L (0-10) 10/22/23 12:54 Delta Troponin T 0.93998 ABS# (0-10) 10/22/23 12:54 Troponin T Hi Sens 6Hr 7.12 ng/L (0-10) 10/22/23 18:17 Troponin T Hi Sens 6Hr Delta 1.28955 ng/L (0-12) 10/22/23 18:17 C-Reactive Protein 3.0 mg/L (0.0-4.9) 10/23/23 04:58 Total Protein 5.6 g/dL (6.6-8.7) L 10/23/23 04:58 Albumin 3.5 g/dL (3.5-5.2) 10/23/23 04:58 Globulin 2.1 g/dL (1.3-4.6) 10/23/23 04:58 Lipase 36 U/L (13-60) 10/22/23 10:45 Vitamin B12 824 pg/mL (232-1245) 10/22/23 10:45 TSH 1.21 uIU/mL (0.27-4.20) 10/22/23 10:45 Prolactin 63.93 ng/mL (4.8-23.3) H 10/22/23 10:45 HCG, Qual Negative (Negative) 10/22/23 10:45 Urine Color Yellow (Yellow) 10/22/23 12:38 Urine Appearance Clear (CLEAR) 10/22/23 12:38 Urine pH 6.5 (5-7) 10/22/23 12:38 Ur Specific [place] 1.020 (1.005-1.030) 10/22/23 12:38 Urine Protein Negative (Negative) 10/22/23 12:38 Urine Glucose (UA) Negative (Normal) 10/22/23 12:38 Urine Ketones Trace (Negative) 10/22/23 12:38 Urine Blood Negative (Negative) 10/22/23 12:38 Urine Nitrate Negative (Negative) 10/22/23 12:38 Urine Bilirubin Negative (Negative) 10/22/23 12:38 Urine Urobilinogen 0.2 mg/dL (Negative) 10/22/23 12:38 Ur Leukocyte Esterase Negative (Negative) 10/22/23 12:38 Amorphous Sediment Not Reportable 10/22/23 12:38 Salicylates < 0.3 mg/dL (3-10) L 10/22/23 10:45 Urine Opiates Screen Negative ng/mL (Negative) 10/22/23 12:38 Acetaminophen < 5.0 ug/mL (10-30) L 10/22/23 10:45 Ur Barbiturates Screen Negative ng/mL (Negative) 10/22/23 12:38 Ur Phencyclidine Scrn Negative ng/mL (Negative) 10/22/23 12:38 Ur Amphetamines Screen Negative ng/mL (Negative) 10/22/23 12:38 U Benzodiazepines Scrn Negative ng/mL (Negative) 10/22/23 12:38 Urine Cocaine Screen Negative ng/mL (Negative) 10/22/23 12:38 U Marijuana (THC) Screen Positive ng/mL (Negative) H 10/22/23 12:38 Ethyl Alcohol 23 mg/dL (0-10) H 10/22/23 10:45 Hepatitis A IgM Ab Non-reactive (Nonreactive) 10/23/23 04:38 Hep Bs Antigen Non-reactive (Nonreactive) 10/23/23 04:38 Hep Bs Antibody < 3.5 (11.5-1000) L 10/23/23 04:38 Hep B Core Total Ab Non-reactive (Nonreactive) 10/23/23 04:38 Hepatitis C Antibody Non-reactive (Nonreactive) 10/23/23 04:38 HIV 1&2 Ab & HIV 1 Ag Non-reactive (Non-Reactiv) 10/23/23 04:38 HIV 1&2 Antibody Non-reactive (Non-Reactiv) 10/23/23 04:38 Vitals Last Vital Signs Temp 97.3 F L 10/23/23 07:35 Pulse 88 10/23/23 08:20 Resp 16 10/23/23 08:20 BP 98/53 10/23/23 07:35 Pulse Ox 95 10/23/23 08:20 O2 Del Method Room Air 10/23/23 08:20 Discharge Plan Discharge Patient Disposition: Home Condition: Stable Prescriptions: New doxycycline hyclate 100 mg tablet 100 mg PO BID 3 Days Qty: 6 0RF Continued Ada 24 Fe 1 mg-20 mcg (24)/75 mg (4) tablet 1 tab PO DAILY Discharge Orders: Discharge Order (Routine); Ordered 10/23/23 Ordered By: Nigel Kuhn Referrals: Perry Miller MD [Physician] - 4-7 days (We have notified your physician's clinic of the need for a follow-up appointment to be scheduled. If you have not heard from them within the next 2 business days, please call them directly. OFFICE WILL CALL WITH APPOINTMENYT) Azael Posadas MD [Physician] - 11/05/23 2:15 pm Discharge Diet: Regular Patient Instructions: Tick Bites, Doxycycline (By mouth), Syncope, Altered Mental Status (ED), Opioid Safety Activity Restrictions/Additional Instructions: Syncope precautions which includes but not limited to no driving or participating in activity would endanger yourself or others in the event the patient experienced a syncopal episode while participating in those activities per state law until further notice by neurology clinic follow up appointment Discharge Attestations Time Spent in Discharge Care*: greater than 30 min Quality Metrics Clinical Quality Measures [ No reported AMI, CVA or VTE this stay] Coding Level of Care Code Acute Code for Chg Fwd Diagnoses Tachycardia R00.0 Dehydration E86.0 Migraine G43.909 Altered mental status R41.82 Syncope R55 Polysubstance abuse F19.10
[2023-10-23] MEDS: acetaminophen 500 mg Tablet PO (10:45)
[2023-10-23] MEDS: ketorolac 10 mg Tablet PO (10:46)
[2023-10-23 11:24] VITALS: PULSE 88; RESP 16; O2SAT 95
--- NOTE | 2023-10-23 11:24 | PC.NURSE ---
Discharge Note Patient discharged to home via private vehicle accompanied by sister. Discharge instructions reviewed with patient and/or outbound sales representative. Mobile pharmacy medications and/or prescriptions provided. Belongings/home medications returned.
[2023-10-23 13:59] LABS: Lyme AB Screen <0.90 index
[2023-10-24 15:59] LABS: Chlamydia Trachomatis RNA TMA NOT DETECTED (NOT DETECTED); Neisseria Gonorrhoeae RNA, TMA NOT DETECTED (NOT DETECTED)
[2023-10-26 17:05] LABS: RMSF IGG NOT DETECTED; RMSF IGM NOT DETECTED
[2023-10-28 17:30] LABS: E. Chaffeensis AB IGG <1:64; E. Chaffeensis AB IGM <1:20
== END 2023-10-23 12:23 | disposition home or self-care (01) ==
LOC: ER 14:52 → MEDSURG 15:52
PROVIDERS: Admitting Provider Internal Medicine; Emergency Provider Emergency Medicine; Visit Provider Internal Medicine
DX: R00.0 Tachycardia, unspecified (principal); E86.0 Dehydration; G43.909 Migraine, unspecified, not intractable, without status migrainosus; R41.82 Altered mental status, unspecified; R55 Syncope and collapse; F19.10 Other psychoactive substance abuse, uncomplicated
CPT/HCPCS: 36415; 36600; 70450; 70496; 70498; 70551; 71045; 80048; 80053; 80306; 80307; 81003; 81015; 82550; 82607; 82803; 83605; 83690; 83735; 84100; 84146; 84443; 84484; 84703; 85025; 85378; 86140; 86618; 86666; 86705; 86706; 86709; 86757; 86803; 87340; 87491; 87591; 87806; 93005; 96361; 96374; 96375; 97161; 99285; G0378; J0696; J1885; J2405; J7030; J7040; Q0144; Q9967

== ENCOUNTER → 2024-06-08 12:51 | Outpatient (BNVA) | payer OTHER, SELFPAY | PROVIDERS: PCP Family Medicine; Visit Provider Family Medicine | DX: J02.9 Acute pharyngitis, unspecified (principal) | CPT/HCPCS: 87071; 87880 ==